=== PATIENT | male | born 1990 | race African-American/Black ===

== ENCOUNTER 2019-03-27 06:08 | Day surgery (SDC) | payer OTHER ==
[2019-03-27] MEDS ORDERED: LACTATED RINGERS 1,000 ML IV ONE (06:30)
[2019-03-27] MEDS ORDERED: CEFAZOLIN SODIUM IN 0.9 % NACL 2 GM/100 ML BAG IV ONE (06:33)
[2019-03-27] MEDS ORDERED: EPINEPHrine 1 MG/ML AMP ONE (07:08)
--- NOTE | 2019-03-27 07:10 | ANESTHESIA ---
Pre-Anesthesia VS, & Labs - Diagnosis L knee meniscus tear - Procedure L knee scope, debridement meniscus vs. repair Vital Signs: Temp Pulse Resp BP Pulse Ox 36.4 C L 68 16 134/88 H 99 03/27/19 06:41 03/27/19 06:41 03/27/19 06:41 03/27/19 06:41 03/27/19 06:41 Height 5 ft 11 in Weight (kg) 112.9 kg - NPO >8 hours - Lab Results Lab results reviewed: Yes Home Medications and Allergies Home Medications: Ambulatory Orders No Known Home Medications 03/18/19 No Known Home Medications 03/18/19 Allergies/Adverse Reactions: Allergies Allergy/AdvReac Type Severity Reaction Status Date / Time No Known Drug Allergies Allergy Verified 03/18/19 10:28 Anes History & Medical History - Medical History Cardiovascular: reports: None Pulmonary: reports: None Gastrointestinal: reports: None Urinary: reports: None Musculoskeletal: reports: Other Endocrine/Autoimmune: reports: None Skin: reports: None Exam General: Alert, Oriented x3, Cooperative Dental: WNL Mouth Openin Fingerbreadth Neck Mobility: Normal Mallampati classification: II Thyromental Distance: 4-6 cm Respiratory: Lungs clear, Normal breath sounds Cardiovascular: Regular rate Neurological: Normal speech Mental/Cognitive Status: Alert/Oriented X3, Normal for patient Cognitive Status: Within normal limits Plan Anesthesia Type: General Consent for Procedure(s) Verified and Reviewed: Yes Code Status: Attempt Resuscitation ASA classification: 1-Healthy patient Is this case an emergency?: No
[2019-03-27] MEDS ORDERED: BUPIVACAINE 0.25% PF 30 ML VIAL ONE (07:13)
[2019-03-27] MEDS ORDERED: KETOROLAC 30 MG/ML VIAL IVP ONE (07:30)
[2019-03-27] MEDS ORDERED: ONDANSETRON 4 MG/2 ML VIAL IVP ONE (07:30)
[2019-03-27] MEDS ORDERED: fentaNYL 100 MCG/2 ML VIAL IVP ONE (07:30)
[2019-03-27] MEDS ORDERED: MIDAZOLAM 2 MG/2 ML VIAL IVP ONE (07:30)
[2019-03-27] MEDS ORDERED: DEXAMETHASONE 4 MG/ML VIAL IVP ONE (07:30)
[2019-03-27] MEDS ORDERED: PROPOFOL 200 MG/20 ML VIAL IVP ONE (07:30)
[2019-03-27] MEDS ORDERED: LIDOCAINE-MPF 2% 5 ML VIAL IM ONE (07:30)
[2019-03-27] MEDS ORDERED: cefTRIAXone 2 GM VIAL ONE (07:48)
[2019-03-27] MEDS ORDERED: BUPIVACAINE 0.25% PF 30 ML VIAL SUBQ ONE ×2 (08:11)
[2019-03-27] MEDS ORDERED: oxyCODONE 5 MG TABLET PO PRN (09:00)
[2019-03-27] MEDS ORDERED: ONDANSETRON 4 MG/2 ML VIAL IVP PRN (09:00)
[2019-03-27 09:56] VITALS: BP 127/73
[2019-03-27] MEDS ORDERED: oxyCODONE 5 MG TABLET ONE (09:56)
--- NOTE | 2019-03-27 10:19 | OPERATIVE REPORT ---
Operative Report - General Procedure Date: 03/27/19 Planned Procedure: Left knee arthroscopy, lateral meniscus debridement vs repair Pre-Op Diagnosis: Left knee lateral meniscus tear Procedure Performed: Left knee arthroscopy, lateral meniscus debridement, medial plica resection Post Op Diagnosis: Left knee lateral meniscus radial tear, prominent medial plica - Procedure Note Primary Surgeon: ALISON MONGE Secondary Surgeon: TOPHER FLOWERS Anesthesia Technique: General LMA Estimated Blood Loss (mL): 5 - Other Other Information/Narrative: OPERATION PERFORMED: Left knee arthroscopy, lateral meniscal debridement, medial plica resection Left knee: 1. Patella: Slight midline chondral wear, medial plica 2. Trochlea: Slight chondral grooving 3. Medial Compartment: Femoral tibial cartilage normal, medial meniscal root intact, medial meniscus intact 4. Lateral Compartment: Femoral cartilage normal, mild fissuring of the tibial plateau, lateral meniscal root intact, fraying of the anterior horn of the lateral meniscus, partial radial tear of the lateral meniscal body, largely confined to the white white zone 5. ACL and PCL: Intact COMPLICATIONS: None IMPLANTS: None Tourniquet: approximately 48 minutes, 250 mmHg, left thigh Indications for procedure: The patient is a 28-year-old male with an approximately 6-month history of left knee pain following basketball injury. He had associated symptoms of catching, locking, swelling and weakness. He failed non-operative treatment to include physical therapy, icing, heat, oral nonsteroidal medications and KT taping. Radiographs and MRI demonstrated a partial radial tear of the lateral meniscal body. The risks, benefits, and alternatives were discussed. Risks included pain, bleeding, infection, damage to nearby structures, lack of symptom relief, implant complications, stiffness, need for further surgeries, DVT, PE, stroke, and even . He signed a written consent form. Procedure Details: The patient was met in the pre-operative hold area. Persistence of symptoms and consent was verified. The patient verified the surgical site as the left knee. The patient then met with anesthesia and was brought back to the operating room. The patient was placed supine on the operating table. A general anesthetic was administered and LMA was placed. A well-padded tourniquet was placed on the left thigh. The left lower extremity was then prepped and draped in the usual sterile fashion. A surgical timeout was then performed. The correct patient, the correct procedure, and the correct surgical site were confirmed by everyone in the room. Perioperative antibiotics had been administered. After surgical timeout and administration of antibiotics the Escmarch was used to exsanguinate the left lower extremity and the tourniquet was raised. An 11 blade scalpel was used to make an anterolateral arthroscopic portal, the anteromedial was created using needle localization and direct visualization. The arthroscope was introduced into the knee and a diagnostic arthroscopy was performed with the above-stated findings. A limited debridement of the anterior fat pad was performed to improve visualization. Meniscal Debridement: The arthroscopic biter and sucker shaver were used to debride the torn meniscal tissue and debride the meniscus back to a stable rim. The arthroscopic probe was used to ensure that the remaining meniscal tissue was stable. Plica debridement: The arthroscopic sucker shaver was used to debride the prominent medial plica, back to the level of the joint capsule. The arthroscopic instruments were then removed from the knee. The portals were closed with 3-0 Monocryl. 0.25% Marcaine plain was injected into the periarticular soft tissues. The incisions were dressed with Xeroform gauze, 4x4 gauze, an ABD and DANIA stocking. The tourniquet was lowered. The surgical drapes were removed. The patient was awoken from anesthesia, extubated, transferred to the hospital bed, and taken to the PACU for recovery in good condition. Postoperative plan: 1. Discharge home from the same day surgery facility once the patient has met discharge criteria. 2. Advance weightbearing as tolerated, range of motion as tolerated, and wean from crutches as tolerated as gait normalizes. 3. Return to clinic in 5-7 days for wound check. Will start formal PT at that time. 4. Allow advancement of activities as tolerated with full clearance for all ac tivities anticipated in 6-8 weeks postoperatively.
== END 2019-03-27 06:09 | disposition home or self-care (01) ==
LOC: SDS 06:08
PROVIDERS: ATTEND Orthopaedic Surgery
PROC: 0SQD4ZZ Repair Left Knee Joint, Percutaneous Endoscopic Approach (ICD-10-PCS; principal; 2019-03-27 07:30)
DX: S83.282A Other tear of lateral meniscus, current injury, left knee, initial encounter (principal)
CPT/HCPCS: 29882; A9270; J0690; J7120